=== PATIENT | female | born 1950 | race Caucasian/White ===

== ENCOUNTER 2022-11-23 09:33 | Emergency (ER) | payer OTHER ==
[~2022-11-23] VITALS: Ht 157.5 cm; Wt 65.8 kg
[2022-11-23 09:55] VITALS: BP 140/63; PULSE 71; RESP 17; TEMP 97.4; O2SAT 97
[2022-11-23] MEDS ORDERED: BACI-418 TP (11:01)
[2022-11-23 11:07] VITALS: BP 124/79; PULSE 74; RESP 17; O2SAT 98
== END 2022-11-23 11:08 | disposition home or self-care (01) ==
LOC: MED 09:33
DX: S60.212A Contusion of left wrist, initial encounter (principal); W18.30XA Fall on same level, unspecified, initial encounter; Y93.89 Activity, other specified; Y92.89 Other specified places as the place of occurrence of the external cause; Y99.8 Other external cause status
CPT/HCPCS: 73130; 99283